=== PATIENT | male | born 1955 | race Hispanic/Latino ===

== ENCOUNTER 2017-03-29 09:52 | Day surgery (SDC) | payer OTHER ==
[~2017-03-29 09:52] MED LIST: XYLOCAINE 2%/ EPI 1:200,000 INFILTRATI ONE
[2017-03-29] MEDS ORDERED: TETRACAINE 0.5% OD SCH (10:38)
[2017-03-29] MEDS: VIGAMOX OD SCH ×3 (11:51→12:02)
--- NOTE | 2017-03-29 12:21 | Anesthesia Consultation ---
Anesthesia Consult and Med Hx Date of service: 03/29/17 - Airway Anesthetic Teeth Evaluation: Dentures (permanent upper) ROM Head & Neck: Adequate Mental/Hyoid Distance: Adequate Mallampati Class: Class III Intubation Access Assessment: Possibly Difficult - Pulmonary Exam CTA: Yes - Cardiac Exam Cardiac Exam: RRR - Pre-Operative Health Status ASA Pre-Surgery Classification: ASA3 Proposed Anesthetic Plan: MAC - Pulmonary Hx Smoking: No Hx Asthma: No - Cardiovascular System Hx Hypertension: Yes (2009) Hx Heart Attack/AMI: Yes (2009,2012 sp CABG 3x 2009, sp stent 2013) Hx Percutaneous Transluminal Coronary Angioplasty (PTCA): Yes - Central Nervous System Hx Seizures: No CVA: No Hx Psychiatric Problems: No - Endocrine Hx Renal Disease: No Hx Liver Disease: No Hx Non-Insulin Dependent Diabetes: No - Other Systems Hx Alcohol Use: Yes (OCCAS) Hx Substance Use: No Hx Cancer: Yes (prostate) - Additional Comments Anesthesia Medical History Comments: NAC
--- NOTE | 2017-03-29 12:22 | Anesthesia Day of Surgery ---
Anesthesia Day of Surgery - Day of Surgery Patient Examined: Yes Patient H&P Reviewed: Yes Patient is NPO: Yes Beta Blockers: Yes (took last PM)
[2017-03-29] MEDS ORDERED: VERSED ONE (12:52)
[2017-03-29] MEDS ORDERED: SUBLIMAZE ONE (12:52)
[2017-03-29] MEDS ORDERED: XYLOCAINE 2%/ EPI 1:50,000 (DENTAL) INFILTRATI ONE (13:21)
--- NOTE | 2017-03-29 13:24 | Short Stay Summary ---
Short Stay Documentation Date of service: 03/29/17 - History H&P: obtained from office - Allergies and Medications Current Medications: Allergies [id number]-Ksq-Apu Reductase Inhibitor Allergy (Verified 03/29/17 10:52) Unknown CRAMPING, MUSCLE ACHES Home Medications Medication Instructions Recorded Confirmed Last Taken Type Aspirin [Aspirin TAB] 325 mg PO DAILY 03/29/17 03/29/17 03/28/17 09:00 History Bicalutamide [Casodex] 50 mg PO DAILY 03/29/17 03/29/17 03/28/17 22:00 History Ezetimibe [Zetia] 10 mg PO DAILY 03/29/17 03/29/17 03/28/17 09:00 History Flomax 0.4 mg PO BID 03/29/17 03/29/17 03/28/17 22:00 History Metoprolol Succinate [Metoprolol 12.5 mg PO DAILY 03/29/17 03/29/17 03/28/17 22: 00 History Succinate] Milk Thistle 200 mg PO DAILY 03/29/17 03/29/17 03/27/17 09:00 History Multivit with Iron,Minerals 1 tab PO DAILY 03/29/17 03/29/17 03/27/17 09:00 History [Spectravite Senior] Ubidecarenone [Coq-10] 200 mg PO DAILY 03/29/17 03/29/17 03/27/17 09:00 History Active Medications Moxifloxacin HCl (Vigamox) 1 drops OD Q5MIN [facility] Stop: 03/29/17 23:59 Last Admin: 03/29/17 12:02 Dose: 1 drops Tetracaine HCl (Tetracaine 0.5%) 1 drops OD Q5M [facility] Stop: 03/29/17 23:59 Last Admin: 03/29/17 11:50 Dose: 1 drops - Brief post op/procedure progress note Date of procedure: 03/29/17 Pre-op diagnosis: Conjunctival cyst right eye Post-op diagnosis: same Procedure: Conjunctival cyst excision right eye Anesthesia: MAC, local Surgeon: LAZARO PARKINSON Estimated blood loss: none Pathology: list (conj cyst) Condition: stable - Disposition Condition at discharge: Good Disposition: DC-01 TO HOME OR SELFCARE - Discharge Diagnoses (1) Conjunctival cyst of right eye Status: Resolved Short Stay Discharge Plan Follow up with: PRIMARY CARE, [Primary Care Provider] - 7 Days
--- NOTE | 2017-03-29 13:26 | Operative Report ---
Operative Report Operative Report: PATIENT'S NAME: DATE OF : DATE OF SURGERY: 03/29/2017 PREOPERATIVE DIAGNOSIS: Conjunctival cyst right eye POSTOPERATIVE DIAGNOSIS: Same OPERATIVE PROCEDURE: Excision of conjunctival cyst right eye SURGEON: Julianne Varela M.D. INTERNATIONAL TRADE MANAGER SURGEON: Willa ANESTHESIA: Monitored anesthesia care in combination with topical and intracameral anesthesia because of the established specific risk of reflux, arrhythmias, or anxiety attacks associated with ocular manipulation, as well as the difficulty of the wide area network systems administrator to manage such potentially catastrophic events while simultaneously attempting to complete the surgical procedure and was deemed necessary for the patient's safety to have an Software Tools Engineer present during the procedure whenever possible. An Software Tools Engineer was utilized to regulate the intravenous sedation of the patient so the patient was cooperative yet not asleep in order for the patient to successfully maintain fixation of the eye on the operating light of the microscope. COMPLICATIONS: [No surgical complications] No blood loss. ALLERGIES: Statins PROGNOSIS: Excellent INDICATIONS FOR SURGERY: The patient is undergoing surgery in the hopes of eliminating or improving these visual difficulties. PROCEDURE: After arriving at the surgery center, the patient was given topical anesthetic and dilating drops, as noted in the record. The patient was then taken into the operating room and given more anesthetic drops. The eyelids , lashes, and lid margins were scrubbed with Betadine solution, and the patient was draped. The Nurse Software Tools Engineer administered IV sedation and monitored the patient during the procedure. 1% lidocaine with epinephrine was injected under the cyst followed by the use of 0.12 forceps and Tammy scissors to excise the cyst. Excised specimen was sent to pathology patient tolerated the procedure well. MEDICATIONS APPLIED AT END OF SURGERY: One drop of Vigamox The patient was given a shield to wear at night and was instructed not to rub or push on the eye. DISCHARGE SUMMARY: The patient was released in stable condition. The patient and those with the patient were given a written sheet of postoperative instructions and counseling on any abnormal laboratory studies. The patient is to see us tomorrow for follow-up in the office and is to call immediately for any difficulties. Julianne Varela M.D. Date
[2017-03-29 13:51] VITALS: BP 110/67
--- NOTE | 2017-03-29 14:39 | Post Anesthesia Evaluation ---
- Post Anesthesia Evaluation Patient Participated: Yes Airway Patent: Yes Stable Respiratory Function: Yes Nausea/Vomiting: No Temp > 96.8F: Yes Pain Manageable: Yes Adequeate Hydration: Yes Anesthesia Complications: No
== END 2017-03-29 13:50 | disposition home or self-care (01) ==
LOC: OR 09:52
DX: H11.441 Conjunctival cysts, right eye (principal); H11.89 Other specified disorders of conjunctiva; I10 Essential (primary) hypertension; E78.00 Pure hypercholesterolemia, unspecified; Z91.048 Other nonmedicinal substance allergy status; Z79.82 Long term (current) use of aspirin; Z79.899 Other long term (current) drug therapy; Z85.46 Personal history of malignant neoplasm of prostate; Z95.5 Presence of coronary angioplasty implant and graft
CPT/HCPCS: 68110; 88304 ×2; J2250; J3010